=== PATIENT | male | born 2000 | race Hispanic/Latino ===

== ENCOUNTER 2019-05-15 23:27 | Emergency (ER) | payer OTHER, SELFPAY ==
[2019-05-16 00:54] LABS: Bacteria/HPF None Seen HPF (None Seen); Bilirubin Negative (Negative); Blood, Urine Negative (Negative); Clarity Clear (Clear); Glucose, Urine (Dipstick) Normal (Negative); Leukocyte Negative Leu/uL (Negative); Nitrite Negative (Negative); Protein, Urine (Dipstick) 30 mg/dL (Neg-Trace); RBC/HPF 0-3 HPF (0-3); Squamous Epithelial None Seen HPF (0-3); Urobilinogen Normal mg/dL (Less than 2); WBC/HPF 0-3 HPF (0-3)
[2019-05-16 01:03] LABS: Sperm/HPF Rare HPF (None Seen)
== END 2019-05-16 01:39 | disposition home or self-care (01) ==
LOC: ERS 23:27
DX: N47.6 Balanoposthitis (principal)
CPT/HCPCS: 81003; 81015; 87491; 87591; 99283

== ENCOUNTER 2021-05-02 13:49 | Emergency (ER) | payer SELFPAY | END 2021-05-02 14:43 | disposition home or self-care (01) | LOC: ERS 13:49 | DX: S01.01XD Laceration without foreign body of scalp, subsequent encounter (principal); J45.909 Unspecified asthma, uncomplicated; F17.210 Nicotine dependence, cigarettes, uncomplicated ==